=== PATIENT | female | born 1985 | race Caucasian/White ===

== ENCOUNTER 2016-05-20 17:58 | Emergency (ER) | payer OTHER ==
[2016-05-20 18:19] VITALS: BP 134/88
[2016-05-20] MEDS ORDERED: KETOROLAC TROMETHAMINE 60 MG/2 ML VIAL IM ONE ×2 (18:31→18:34)
--- NOTE | 2016-05-20 18:49 | ERNOTE ---
Lower Extremity HPI - Narrative Date of Service: 05/20/16 - General Lower Extremities Pain: knee: left Time Seen by Provider: 05/20/16 18:24 Source: patient Exam Limitations: no limitations - Immun/Allergies/Home Medications Immunizations: IMMUNIZATION HX Immunizations Up to Date Yes History of Influenza Vaccine Yes Hx Pneumococcal Vaccination No Allergies/Adverse Reactions: Allergies Allergy/AdvReac Type Severity Reaction Status Date / Time No Known Allergies Allergy Unverified 05/20/16 18:13 Home Medications: HOME MEDICATIONS Cyclobenzaprine HCl [Flexeril] 10 mg PO BID 05/20/16 [Last Taken Unknown] Dextroamphetamine/Amphetamine [Adderall 20 mg Tablet] 20 mg PO DAILY 05/20/16 [ Last Taken Unknown] Fluticasone Propionate [Flovent Diskus] 50 mcg IH DAILY PRN 05/20/16 [Last Taken Unknown] Levothyroxine Sodium [Synthroid] 75 mcg PO DAILY 05/20/16 [Last Taken Unknown] Lurasidone HCl [Latuda] 120 mg PO DAILY 05/20/16 [Last Taken Unknown] Naproxen [Naprosyn] 500 mg PO BID #60 tablet 05/20/16 [Last Taken Unknown] Spironolactone [Aldactone] 100 mg PO DAILY 05/20/16 [Last Taken Unknown] Vitamin B Complex 1 each PO DAILY 05/20/16 [Last Taken Unknown] - Pain Score Pain Score #1 Pain Score: 10 - History of Present Illness Narrative: Patient is a 30 year old female who presents to the ED with complaints of pain behind her left knee. Patient states she has a known Saravia's cyst and is currently prescribed Ibuprofen TID for pain. Patient states pain is increasingly worse since yesterday and is now 10/10. Has attempted Biofreeze and heating pain without relief. Date (Duration): 05/20/16 Occurred: other - progressively worse since yesterday Method of Injury: Reports: other - diagnosed with Saravia's Cyst Loss of Consciousness: Reports: no loss of consciousness Modifying Factors - (Improves): Reports: other - has attempted Biofreeze and heating pad without relief Modifying Factors - (Worsens): Reports: movement Other Injuries: Reports: none Subsequent Symptoms: Denies: sensory loss, numbness, motor loss, bowel/bladder problem Prior Treament: Reports: treated by physician Review of Systems - Review of Systems Constitutional: Present: no symptoms reported. Absent: recent illness, fever, chills EYE: Present: no symptoms reported ENT: Present: no symptoms reported Respiratory: Present: no symptoms reported Cardiology: Present: no symptoms reported Gastrointestinal/Abdominal: Present: no symptoms reported Genitourinary: Present: no symptoms reported Musculoskeletal: Present: other - slight swelling noted to left medial area of knee. Absent: back pain, muscle pain, neck pain, joint pain, joint swelling Skin: Present: no symptoms reported Neurological: Present: no symptoms reported Endocrine: Present: no symptoms reported Hematologic/Lymphatic: Present: no symptoms reported - Patient's Past Medical History Patient History - Medical: ADHD, Anxiety, Depression, Hypothyroidism Patient History - Cardiac/Respiratory: No pertinent hx Patient History - Cancer: No Hx of Cancer Patient History - Surgical Procedures: Cholecystectomy, T & A Patient History - Other: None LMP (females 10-50): 3 weeks - Social History Living Situations: home Abuse History: No History of abuse Psych History: Hx of Anxiety, Hx of Depression Smoking Status: Never smoker Alcohol Use: none Drug Use: none - Immunizations Immunizations Up to Date: Yes Hx Pneumococcal Vaccination: No History of Influenza Vaccine: Yes Physical Exam - Physical Exam General Appearance: Present: wd/wn, alert, no apparent distress Eye Exam: Normal inspection: bilateral, PERRL: bilateral Respiratory: Present: no respiratory distress, normal breath sounds, no accessory muscle use, chest nontender, lungs clear Cardiovascular/Chest: Present: regular rate, rhythm, no murmur, normal peripheral pulses Rectal Exam: Present: deferred Back Exam: Present: normal range of motion Extremity Exam: Present: normal except - - mild swelling to left medial area of knee, normal range of motion. Absent: non-tender, decreased range of motion, calf tenderness, joint redness Neurological Exam: Present: alert, oriented, normal mood/affect, no motor/ sensory deficits Skin Exam: Present: normal color, warm/dry Lymphatic Exam: Present: no adenopathy ED Progress - Vital Signs Patient's Vital Signs:: I have reviewed the patient's vital signs. Vital Signs: Vital Signs 05/20/16 18:10 Temperature 37.2 C Pulse Rate 103 H Respiratory 18 Rate Blood Pressure 134/88 O2 Sat by Pulse 98 Oximetry - Progress/Reassessment Chief Complaint: Lower Extremity Pain/ Injury Departure Clinical Impression: Saravia's cyst of knee Qualifiers: Laterality: left Qualified Code(s): M71.22 - Synovial cyst of popliteal space [ Saravia], left knee - Departure Disposition: Home Follow Up Needed Condition: Good Instructions: Saravia Cyst Additional Instructions: Discontinue Ibuprofen 800 mg three times a day and try Naprosyn 500 mg twice a day for pain and swelling. Wear jake wrap to left knee to help with pain. Follow up with primary for further care and treatment Referrals: Melida Juarez FNP [Primary Care Provider] - Prescriptions: Naproxen [Naprosyn] 500 mg PO BID #60 tablet
== END 2016-05-20 19:05 | disposition home or self-care (01) ==
LOC: ER 17:58
DX: M71.22 Synovial cyst of popliteal space [Baker], left knee (principal); F90.9 Attention-deficit hyperactivity disorder, unspecified type; E03.9 Hypothyroidism, unspecified

== ENCOUNTER 2016-07-22 19:08 | Emergency (ER) | payer OTHER ==
--- NOTE | 2016-07-22 20:46 | ERNOTE ---
Psychological HPI - Date Date of Service: 07/22/16 - General Chief Complaint: Anxiety Source: Reports: patient, family - mom - Immun/Allergies/Home Medications Allergies/Adverse Reactions: Allergies No Known Allergies Allergy (Unverified 05/20/16 18:13) Home Medications: HOME MEDICATIONS Cyclobenzaprine HCl [Flexeril] 10 mg PO BID 05/20/16 [Last Taken Unknown] Dextroamphetamine/Amphetamine [Adderall 20 mg Tablet] 20 mg PO DAILY 05/20/16 [ Last Taken Unknown] Fluticasone Propionate [Flovent Diskus] 50 mcg IH DAILY PRN 05/20/16 [Last Taken Unknown] Levothyroxine Sodium [Synthroid] 75 mcg PO DAILY 05/20/16 [Last Taken Unknown] Lurasidone HCl [Latuda] 120 mg PO DAILY 05/20/16 [Last Taken Unknown] Naproxen [Naprosyn] 500 mg PO BID #60 tablet 05/20/16 [Last Taken Unknown] Spironolactone [Aldactone] 100 mg PO DAILY 05/20/16 [Last Taken Unknown] Vitamin B Complex 1 each PO DAILY 05/20/16 [Last Taken Unknown] - History of Present Illness Narrative: PT C/O OF ANXIETY FOR 3 WEEKS. missed her saturday appointment with her psych. She is not suicidal of homicidal. She feels wound up inside. She also has clonezapam to use prn for anxiety. She is not sure why. she states she is taking her meds but has had weight gain and thinks her meds may need adjustment. Time Seen by Provider: 07/22/16 20:45 Review of Systems - Review of Systems Constitutional: Present: See HPI Psych: Present: See HPI, anxiety All Other Systems: All systems neg except as marked - Patient's Past Medical History Patient History - Medical: ADHD, Anxiety, Depression, Hypothyroidism Patient History - Cardiac/Respiratory: No pertinent hx Patient History - Cancer: No Hx of Cancer Patient History - Surgical Procedures: Cholecystectomy, T & A Patient History - Other: None - Social History Living Situations: home Abuse History: No History of abuse Psych History: Hx of Anxiety, Hx of Depression Smoking Status: Never smoker Alcohol Use: none Drug Use: none - Immunizations Immunizations Up to Date: Yes Hx Pneumococcal Vaccination: No History of Influenza Vaccine: Yes Physical Exam - Physical Exam General Appearance: Present: wd/wn, alert, no apparent distress - obese young lady, well groomed, a & o & coop with nad. Eye Exam: Normal inspection: bilateral, PERRL: bilateral, EOMI: bilateral Ears, Nose, Throat: Present: normal ENT inspection Neck: Present: normal inspection Respiratory: Present: no respiratory distress, normal breath sounds, no accessory muscle use, chest nontender, lungs clear Cardiovascular/Chest: Present: regular rate, rhythm, no murmur, normal peripheral pulses Neurological Exam: Present: alert, oriented, normal mood/affect, no motor/ sensory deficits Skin Exam: Present: normal color ED Progress - Vital Signs Vital Signs: Vital Signs 07/22/16 19:10 Temperature 37.0 C Pulse Rate 107 H Respiratory 20 Rate Blood Pressure 142/74 O2 Sat by Pulse 100 Oximetry - Progress/Reassessment Chief Complaint: Anxiety Departure Clinical Impression: Anxiety - Departure Disposition: Home Follow Up Needed Condition: Good Instructions: Panic Attacks, [id number] Additional Instructions: continue your meds as directed for now but get intouch with your doctor in the morning to see if you can get in sooner. you may need medication adjustments. Use meditation technique 3 times a day. There are several apps that help instruct you , one is "simple habit" that is free on [employer] and I think on android. Also many people use 30 minutes of an aerobic exercise every other day to help them with stress and depression both. Referrals: Melida Juarez FNP [Primary Care Provider] -
[2016-07-22 21:22] VITALS: BP 118/74
== END 2016-07-22 21:15 | disposition home or self-care (01) ==
LOC: ER 19:08
DX: F41.0 Panic disorder [episodic paroxysmal anxiety] (principal); F90.9 Attention-deficit hyperactivity disorder, unspecified type; E03.9 Hypothyroidism, unspecified

== ENCOUNTER 2016-08-13 17:43 | Emergency (ER) | payer OTHER ==
[2016-08-13 17:55] VITALS: BP 137/94
--- NOTE | 2016-08-13 18:04 | ERNOTE ---
Integumentary HPI - Narrative Date of Service: 08/13/16 - General Presenting Symptoms: rash Source: patient Exam Limitations: no limitations - Immun/Allergies/Home Medications Immunizations: IMMUNIZATION HX Immunizations Up to Date Yes History of Influenza Vaccine Yes Hx Pneumococcal Vaccination No Allergies/Adverse Reactions: Allergies Allergy/AdvReac Type Severity Reaction Status Date / Time No Known Allergies Allergy Verified 08/13/16 17:55 Home Medications: HOME MEDICATIONS Cyclobenzaprine HCl [Flexeril] 10 mg PO BID 05/20/16 [Last Taken Unknown] Dextroamphetamine/Amphetamine [Adderall 20 mg Tablet] 20 mg PO DAILY 05/20/16 [ Last Taken Unknown] Fluticasone Propionate [Flovent Diskus] 50 mcg IH DAILY PRN 05/20/16 [Last Taken Unknown] Levothyroxine Sodium [Synthroid] 75 mcg PO DAILY 05/20/16 [Last Taken Unknown] Lurasidone HCl [Latuda] 120 mg PO DAILY 05/20/16 [Last Taken Unknown] Naproxen [Naprosyn] 500 mg PO BID #60 tablet 05/20/16 [Last Taken Unknown] Spironolactone [Aldactone] 100 mg PO DAILY 05/20/16 [Last Taken Unknown] Vitamin B Complex 1 each PO DAILY 05/20/16 [Last Taken Unknown] Cimetidine 400 mg PO BID #14 tablet 08/13/16 [Last Taken Unknown] EPINEPHrine [Epipen] 0.3 mg IJ PRN PRN 1 Days 08/13/16 [Last Taken Unknown] diphenhydrAMINE HCL [Benadryl] 25 mg PO Q6H PRN #30 cap 08/13/16 [Last Taken Unknown] predniSONE [Prednisone] 50 mg PO DAILY 4 Days 08/13/16 [Last Taken Unknown] - History of Present Illness Narrative: Patient presents with what she feels is an allergic reaction. She relates itching and rash beginning Saturday. She has recently started Latuda and also omeperazole 1 week ago. She states the new psych medicine makes her throat feel funny and dry. Her itching began 2 days ago with rash. She has noticed rash for 2 days on arms, legs and trunk. She feels liek her throat is dry but this was present before her rash Sx started and was there with the start of her psych meds. No other exposures to cause rash she can think of. Significant itching. no fever. Location: Reports: generalized Quality: Reports: itching Modifying Factors - (Improves): Reports: nothing Modifying Factors - (Worsens): Reports: nothing Associated Symptoms: Denies: blisters, petechiae, fever, numbness Prior Treatment: Denies: recently seen Review of Systems - Review of Systems Constitutional: Absent: fever EYE: Absent: vision changes ENT: Present: other - dry mouth and throat Respiratory: Absent: shortness of breath Cardiology: Absent: chest pain Gastrointestinal/Abdominal: Absent: abdominal pain Neurological: Absent: weakness - Patient's Past Medical History Patient History - Medical: ADHD, Anxiety, Depression, Hypothyroidism Patient History - Cardiac/Respiratory: No pertinent hx Patient History - Cancer: No Hx of Cancer Patient History - Surgical Procedures: Cholecystectomy, T & A Patient History - Other: None - Social History Living Situations: home Abuse History: No History of abuse Psych History: Hx of Anxiety, Hx of Depression Alcohol Use: none Drug Use: none - Immunizations Immunizations Up to Date: Yes Hx Pneumococcal Vaccination: No History of Influenza Vaccine: Yes Physical Exam - Physical Exam General Appearance: Present: alert, no apparent distress, other - sitting in the chair, non-toxic, no distress. Well hydrated, speaking in full sentences. Ears, Nose, Throat: Present: normal ENT inspection, other - no swelling of lips , tongue , intra-oral or posterior oropharyngeal structures.. Absent: pharyngeal erythema, pharyngeal swelling, tonsillar exudate, tonsillar swelling , dry mucous membranes Neck: Present: normal inspection Respiratory: Present: no respiratory distress, normal breath sounds, no accessory muscle use, lungs clear Cardiovascular/Chest: Present: regular rate, rhythm Gastrointestinal/Abdominal: Present: normal bowel sounds, nontender, soft Extremity Exam: Present: normal inspection Neurological Exam: Present: alert, normal mood/affect, no motor/sensory deficits , payment processor II-XII nml as tested. Absent: motor weakness Skin Exam: Present: other - she has what appears to be scattered urticarial areas on arms, legs, trunk. Blanching. No SJS, TEN or EM. No evidenceof cellulitis or infectious process. ED Progress - Vital Signs Patient's Vital Signs:: I have reviewed the patient's vital signs. Vital Signs: Vital Signs 08/13/16 17:51 Temperature 36.4 C L Pulse Rate 86 Respiratory 12 Rate Blood Pressure 137/94 O2 Sat by Pulse 98 Oximetry - Progress/Reassessment Chief Complaint: Rash Progress Note-Subjective: 08/13/16 18:52 Improved on re-check. i offered her prolonged observation but she declines this and wishes to go home. She understands risks and benefits. This could be drug related or d/t something else. It does appear allergic at this point. She is requesting to go home. I discussed warning signs and reasons to return as well as the need for close f/u. Departure Clinical Impression: Rash, Allergic reaction - Departure Disposition: Home self-care Condition: Stable Instructions: Hives, [id number] Additional Instructions: Rest. Medications as directed. Use the Cimetidine, Benadryl and Prednisone as directed. EpiPen if needed, use as directed. Stop the two medications in question and call your doctor tomorrow for further instructions on if you should change these medications or not. Follow-up with your doctor within 48 hours for a re-check. Return here if you change your mind about observation, develop trouble breathing or swallowing or if your condition worsens or changes in any way. Referrals: Melida Juarez, REHANA [Primary Care Provider] - Prescriptions: Cimetidine 400 mg PO BID #14 tablet EPINEPHrine [Epipen] 0.3 mg IJ PRN PRN 1 Days PRN Reason: Allergic Reaction diphenhydrAMINE HCL [Benadryl] 25 mg PO Q6H PRN #30 cap PRN Reason: Itching predniSONE [Prednisone] 50 mg PO DAILY 4 Days
[2016-08-13] MEDS ORDERED: predniSONE 20 MG TABLET PO ONE (18:05)
[2016-08-13] MEDS ORDERED: diphenhydrAMINE HCL 25 MG CAPSULE PO ONE (18:05)
[2016-08-13] MEDS ORDERED: predniSONE 20 MG TABLET ONE (18:08)
[2016-08-13] MEDS ORDERED: diphenhydrAMINE HCL 25 MG CAPSULE ONE (18:08)
== END 2016-08-13 18:57 | disposition home or self-care (01) ==
LOC: ER 17:43
DX: R21 Rash and other nonspecific skin eruption (principal); T47.1X5A Adverse effect of other antacids and anti-gastric-secretion drugs, initial encounter; F90.9 Attention-deficit hyperactivity disorder, unspecified type; F41.8 Other specified anxiety disorders